=== PATIENT | female | born 1990 | race Caucasian/White ===

== ENCOUNTER → 2022-04-14 | Outpatient (CLI) | payer SELFPAY ==
--- NOTE | 2022-04-14 10:37 | US_ITS ---
STUDY: SUPERFICIAL ULTRASOUND - RIGHT INGUINAL REGION. REASON FOR EXAM: Female, 31 years old. R INGUINAL LUMP TECHNIQUE: A superficial ultrasound was performed with real-time and static martin-scale imaging. COMPARISON: None. FINDINGS: 2 adjacent hypoechoic nodules are seen corresponding to the palpable abnormality. The larger measures 2 cm x 1.3 cm x 0.6 cm. These may represent lymph nodes. Biopsy may be indicated. US/Ext Non Vasc Limited/Soft Tiss IMPRESSION: Findings suggest left to lymph nodes corresponding to the palpable lump in the right inguinal region. The larger measures 2 cm x 1.3 cm x 0.6 cm. Biopsy recommended. Electronically Signed: Lance Medina MD at 12:46 EDT ,
== END | disposition home or self-care (01) ==
LOC: US 10:35
PROVIDERS: PCP Nurse Practitioner Family; Referring Provider Student in an Organized Health Care Education/Training Program; Visit Provider Student in an Organized Health Care Education/Training Program
DX: R22.2 Localized swelling, mass and lump, trunk (principal)
CPT/HCPCS: 76882

== ENCOUNTER → 2022-11-23 | Outpatient (CLI) | payer SELFPAY ==
--- NOTE | 2022-11-23 15:58 | US_ITS ---
INDICATION: PAINFUL MENSES, R/O ENDOMETRIOSIS EXAMINATION: Ultrasound US Pelvis Non-OB Complete TECHNIQUE: Transabdominal and transvaginal pelvic ultrasound was performed. Grayscale, spectral waveform, and color flow Doppler evaluation of the adnexa. COMPARISON: None. FINDINGS: UTERUS: 1. Anteverted retroflexed The uterus measures 11.3 x 5.9 x 5.3 cm. There is no uterine mass. 2. There is an abnormal appearance of the endometrium which is mildly thickened however there is a hypoechoic structure which appears to be within the endometrial cavity, measuring approximately 2.1 x 1.4 x 3.5 cm and shows no abnormal blood flow. No free fluid in the endometrial cavity. 3. Bilaminar distance of the endometrium estimated approximately 11 mm. No abnormal fluid collections. Report RIGHT OVARY: 6.0 x 5.3 x 4.4 cm. Non-enlarged, normal echogenicity. There is normal arterial inflow and venous outflow present in the right ovary. There is a complex cyst measuring 4.4 x 3.4 x 3.5 cm. No abnormal blood flow. LEFT OVARY: 2.6 x 6.6 x 4.9 cm. Non-enlarged, normal echogenicity. There is normal arterial inflow and venous outflow present in the left ovary. There is a complex LEFT ovarian cyst measuring 6.6 x 6.2 x 5.6 cm. FREE FLUID: There is small amount of free fluid in the cul-de-sac. US/Pelvic (Non ) IMPRESSION: 1. Ovoid hypoechoic structure within the endometrial cavity. No abnormal normal blood flow noted, findings are of uncertain etiology, and a submucosal fibroid is a consideration. 2. Bilateral ovarian complex cyst largest on the RIGHT measures 4.4 x 3.4 x 3.5 cm. Similar hypoechoic structure in the LEFT ovary. Endometrioma is a consideration. No abnormal blood flow. 3. Trace free fluid. Electronically Signed: Jose David Alvarez MD at 18:18 EST ,
== END | disposition home or self-care (01) ==
PROVIDERS: PCP Nurse Practitioner Family
DX: R10.2 Pelvic and perineal pain (principal); N83.201 Unspecified ovarian cyst, right side; N80.9 Endometriosis, unspecified; N94.6 Dysmenorrhea, unspecified
CPT/HCPCS: 76856

== ENCOUNTER → 2023-01-25 | Outpatient (CLI) | payer SELFPAY | END | disposition home or self-care (01) | PROVIDERS: PCP Nurse Practitioner Family | DX: E80.7 Disorder of bilirubin metabolism, unspecified (principal) | CPT/HCPCS: 36415; 82247 ==

== ENCOUNTER → 2023-03-10 | Outpatient (CLI) | payer SELFPAY | END | disposition home or self-care (01) | PROVIDERS: PCP Nurse Practitioner Family | DX: R97.1 Elevated cancer antigen 125 [CA 125] (principal) | CPT/HCPCS: 36415; 86304 ==

== ENCOUNTER → 2023-06-08 | Outpatient (CLI) | payer SELFPAY ==
--- NOTE | 2023-06-08 17:07 | US_ITS ---
STUDY: ULTRASOUND OF THE FEMALE PELVIS - COMPLETE REASON FOR EXAM: Female, 32 years old. ENDOMETRIOSIS TECHNIQUE: Transabdominal COMPARISON: 11.23.22. FINDINGS: The uterus is retroflexed and is in a midline position. The uterus measures 9.8 x 6.3 cm. Normal uterine cervix. The endometrium measures 13 mm in thickness, and is fluid distended. There is 27mm demonstrated endometrial mass. There is no demonstrated myometrial mass. I.U.D. - The patient does not have an I.U.D. The right ovary is visualized. The right ovary measures 5.9 cm. There is right ovarian mass measuring 22mm. There is a simple right ovary cyst measuring 17mm . There is normal arterial and normal venous vascularity. The left ovary is visualized. The left ovary measures 6.3 cm. There is left ovarian septated cyst measuring 41mm. 28 x 21 mm hypoechoic lesion in the left ovary. Hypoechoic ovoid lesion in the left ovary measuring 32 x 13 mm.. There is no visualized left adnexal mass or complex lesion. There is normal arterial and normal venous vascularity. There is no fluid in the cul-de-sac. Unremarkable urinary bladder. US/Pelvic (Non ) IMPRESSION: Endometrial mass is again identified. this could be a subendometrial fibroid . Direct visualization is recommended. Complex right ovarian lesion may be a hemorrhagic cyst or dermoid. Endometriomas are also in the differential. Complex left ovary lesions may be endometriomas. Electronically Signed: Bryce Lucas MD at 17:46 EDT ,
== END | disposition home or self-care (01) ==
LOC: US 17:06
PROVIDERS: PCP Nurse Practitioner Family
DX: N80.9 Endometriosis, unspecified (principal); R10.2 Pelvic and perineal pain
CPT/HCPCS: 76856

== ENCOUNTER → 2023-06-15 | Outpatient (CLI) | payer SELFPAY | END | disposition home or self-care (01) | DX: R97.1 Elevated cancer antigen 125 [CA 125] (principal); N80.9 Endometriosis, unspecified | CPT/HCPCS: 36415; 86304 ==

== ENCOUNTER → 2023-09-06 | Outpatient (CLI) | payer SELFPAY ==
--- NOTE | 2023-09-06 15:32 | US_ITS ---
INDICATION: R/O ADENOMYOSIS,ENDOMETRIOMAS EXAMINATION: Ultrasound US Pelvis Non-OB Complete TECHNIQUE: Transabdominal sonographic images of the pelvis. Swan scale and color Doppler evaluation of the adnexa. COMPARISON: 06/08/2023 ultrasound. FINDINGS: UTERUS: Retroflexed. 9.7 x 5.7 x 6.3 cm. 2.1 cm mass within the fundal aspect of the endometrium. 1.1 cm hypoechoic lesion within the myometrium to the left of the endometrium. Endometrium is not well visualized. RIGHT OVARY: Stable 2.3 cm hyperechoic nodular lesion within the right ovary. LEFT OVARY: 5.6 cm complex left ovarian cyst slightly increased in size as compared to the prior exam. FREE FLUID: No significant free fluid. US/Pelvic (Non ) IMPRESSION: 1. 2.1 cm mass within the fundal aspect of the endometrium, stable as compared to 06/08/2023. Recommend follow-up with direct visualization versus MRI. 2. 2.3 cm hyperechoic nodular lesion in the right ovary, stable as compared to 06/08/2023. Recommend follow-up with MRI versus ultrasound in 6-12 weeks. 3. 5.6 cm complex left ovarian cyst, slightly increased in size as compared to 06/08/2023. Recommend short interval follow-up ultrasound. The endometrium was not well visualized on these transabdominal ultrasound images. Recommend follow-up with MRI to evaluate for adenomyosis or endometriomas. Electronically Signed: Philippe Rowley DO at 3:28 EDT ,
== END | disposition home or self-care (01) ==
LOC: US 15:30
DX: N80.9 Endometriosis, unspecified (principal); R10.2 Pelvic and perineal pain
CPT/HCPCS: 76856

== ENCOUNTER → 2023-09-26 | Outpatient (CLI) | payer SELFPAY ==
[2023-09-27 09:09] LABS: Cancer Antigen 125 83.2 U/mL (0.0-38.1)
== END | disposition home or self-care (01) ==
LOC: LAB 08:05
DX: N80.9 Endometriosis, unspecified (principal); R10.2 Pelvic and perineal pain; R97.1 Elevated cancer antigen 125 [CA 125]
CPT/HCPCS: 36415; 86304

== ENCOUNTER → 2023-12-01 | Outpatient (CLI) | payer SELFPAY ==
--- NOTE | 2023-12-01 10:02 | US_ITS ---
STUDY: ULTRASOUND TRANSVAGINAL CLINICAL: Female, 33 years old. ENDOMETRIOSIS TECHNIQUE: Transvaginal COMPARISON: September 06, 2023 FINDINGS: Normal uterine size measuring 10.3 x 5.8 x 5.8 cm in maximal craniocaudal dimension. There are no myometrial masses. Thickened endometrial lining measuring 1.8 cm. There is a hypoechoic/heterogeneous endometrial nodule measuring 2.5 x 2.3 x 1.8 cm. Etiology is indeterminate however it has increased in size since prior exam. Normal uterine cervix. Normal right ovary, measuring 5.9 x 4.4 x 3.9 cm. There is a hyperechoic nodule measuring 2.9 x 2.4 x 2.3 cm in association with heterogeneous thick-walled complex cyst measuring 2.5 x 1.5 x 2.1 cm possibly representing dermoid cyst. Enlarged left ovary, measuring 8 x 6.8 x 6 cm. There is a complex cyst with minor septation and possible intramural nodule measuring 1.1 x 1.5 cm of indeterminate etiology. This may represent endometrioma however cannot definitively exclude a cystic neoplasm. Recommend clinical correlation and follow-up studies There is mild free fluid in the pelvis. US/Transvaginal Non- IMPRESSION: Endometrial mass of uncertain etiology with possible right ovarian dermoid and complex cyst in the left ovary of indeterminate etiology. Recommend clinical correlation and pelvic MRI for more definitive evaluation Electronically Signed: Philippe Frank MD at 17:46 EST ,
== END | disposition home or self-care (01) ==
DX: N80.9 Endometriosis, unspecified (principal); R10.2 Pelvic and perineal pain
CPT/HCPCS: 76830

== ENCOUNTER → 2023-12-11 | Outpatient (CLI) | payer SELFPAY ==
[2023-12-12 04:07] LABS: Cancer Antigen 125 89.2 U/mL (0.0-38.1)
== END | disposition home or self-care (01) ==
DX: R97.1 Elevated cancer antigen 125 [CA 125] (principal)
CPT/HCPCS: 36415; 86304

== ENCOUNTER → 2024-01-23 | Outpatient (CLI) | payer SELFPAY | END | disposition home or self-care (01) | DX: N92.6 Irregular menstruation, unspecified (principal) | CPT/HCPCS: 36415; 82670 ==

== ENCOUNTER → 2024-02-10 | Outpatient (CLI) | payer SELFPAY ==
[2024-02-10 09:09] LABS: T4 Free Direct 1.01 ng/dL (0.76-1.46); Thyroid Stim Hormone (TSH) 2.66 uIU/mL (0.358-3.74)
[2024-02-12 09:23] LABS: Progesterone Level 12.74 ng/mL (See Comment)
== END | disposition home or self-care (01) ==
DX: R53.83 Other fatigue (principal); N94.3 Premenstrual tension syndrome; N92.6 Irregular menstruation, unspecified
CPT/HCPCS: 36415; 84144; 84439; 84443

== ENCOUNTER → 2024-05-01 | Outpatient (CLI) | payer SELFPAY | END | disposition home or self-care (01) | DX: R97.1 Elevated cancer antigen 125 [CA 125] (principal) | CPT/HCPCS: 36415; 86304 ==

== ENCOUNTER → 2024-06-11 | Outpatient (CLI) | payer SELFPAY ==
--- NOTE | 2024-06-11 14:28 | US_ITS ---
INDICATION: PELVIC AND PERINEAL PAIN EXAMINATION: Ultrasound US Pelvis Non-OB Complete TECHNIQUE: Transabdominal pelvic ultrasound was performed. Grayscale, spectral waveform, and color flow Doppler evaluation of the adnexa. COMPARISON: December 01, 2023., November 23, 2022 FINDINGS: UTERUS: Retroverted. The uterus measures 10.0 x 6.4 x 6.0 cm. Lower uterine segment anterior myometrial hypoechoic 1.5 cm fibroid. Endometrial stripe measures 8 mm, anterior posterior by a uterine fundal endometrial hypoechoic 2.7 x 1.4 cm mass with some internal vascular flow, grossly stable from 2.5 x 1.8 cm on December 01, 2023 and 2.1 x 1.4 cm November 23, 2022, most consistent with submucosal fibroid or polyp . RIGHT OVARY: 6.7 x 5.0 x 3.0 cm. Multiple normal small follicles individually up to 3.3 cm in size. In addition there is a hyperechoic 2.3 cm nonvascular focus that is unchanged from November 2022 There is normal arterial inflow and venous outflow present in the right ovary. LEFT OVARY: 6.3 x 3.6 x 4.4 cm.. Anechoic 4.0 cm dominant follicle with other small follicles. There is normal arterial inflow and venous outflow present in the left ovary. FREE FLUID: None. Other: Bladder anechoic with prevoid volume 471 mL. No post void imaging obtained. US/Pelvic (Non ) IMPRESSION: Small anterior body myometrial fibroid with concern for additional chronic unchanged fundal submucosal fibroid or polyp Large bilateral ovarian physiologic cysts. Stable right ovarian 2.3 cm echogenic lesion, possibly hemangioma, without suspicious change from November 23, 2022.. Preserved ovarian Doppler vascular flow. Well filled bladder. Electronically Signed: Abdiel Leonard MD at 3:54 EDT ,
== END | disposition home or self-care (01) ==
DX: R10.2 Pelvic and perineal pain (principal)
CPT/HCPCS: 76856

== ENCOUNTER → 2024-09-04 | Outpatient (CLI) | payer SELFPAY | END | disposition home or self-care (01) | PROVIDERS: Referring Provider Obstetrics & Gynecology Reproductive Endocrinology; Visit Provider Obstetrics & Gynecology Reproductive Endocrinology | DX: R97.1 Elevated cancer antigen 125 [CA 125] (principal); N80.9 Endometriosis, unspecified | CPT/HCPCS: 36415; 86304 ==

== ENCOUNTER → 2024-10-10 | Outpatient (CLI) | payer SELFPAY ==
--- NOTE | 2024-10-10 12:54 | US_ITS ---
PROCEDURE: ULTRASOUND OF THE FEMALE PELVIS - COMPLETE REASON FOR EXAM: Female, 33 years old. PELVIC AND PERINEAL PAIN TECHNIQUE: Transabdominal and Transvaginal TECHNICAL QUALITY: Adequate. COMPARISON: Pelvic ultrasound dated December 01, 2023 FINDINGS: The uterus is anteverted and is in a midline position. The uterus measures 9.9 x 5.4 x 5.4 cm. Redemonstration of uterine fibroids as follows: Small anterior fundal uterine body junction submucosal fibroid measuring 1.75 x 1.19 cm The endometrium measures 13.9 mm in thickness, and is bright. There is no demonstrated endometrial mass. Normal uterine cervix. The right ovary is visualized. The right ovary measures 6.2 x 2.6 x 2.7 cm. Cortical/exophytic follicular cyst with septation and benign features and no complexity measures 4.0 x 3.8 cm. This previously measured 2.3 cm on the prior study. No mass is present. There is no visualized right adnexal mass or complex lesion. The left ovary is visualized. The left ovary measures 6.2 x 5.8 x 4.6 cm. Left ovarian dominant follicular cyst measures 5.4 x 4.7 cm which is benign and has no vascularity or complexity. On the prior study this cyst measures 4 cm maximally. There is no visualized left adnexal mass or complex lesion. Normal color vascular flow and Doppler signal is demonstrated in both ovaries. There is no fluid in the cul-de-sac. US/Pelvic (Non ) IMPRESSION: 1. Interval enlargement of bilateral ovarian follicular cysts which are benign. Follow-up evaluation can be performed as clinically indicated given the size and risk of rupture. Electronically Signed: Luis Mullen MD at 10:26 EST ,
== END | disposition home or self-care (01) ==
LOC: US 12:51
PROVIDERS: Referring Provider Obstetrics & Gynecology Reproductive Endocrinology; Visit Provider Obstetrics & Gynecology Reproductive Endocrinology
DX: R10.2 Pelvic and perineal pain (principal); F80.9 Developmental disorder of speech and language, unspecified
CPT/HCPCS: 76856

== ENCOUNTER → 2024-12-20 | Outpatient (CLI) | payer SELFPAY | END | disposition home or self-care (01) | LOC: LAB 15:13 | PROVIDERS: Referring Provider Obstetrics & Gynecology Reproductive Endocrinology; Visit Provider Obstetrics & Gynecology Reproductive Endocrinology | DX: R97.1 Elevated cancer antigen 125 [CA 125] (principal) | CPT/HCPCS: 36415; 86304 ==

== ENCOUNTER → 2025-01-02 | Outpatient (CLI) | payer SELFPAY ==
--- NOTE | 2025-01-02 12:23 | US_ITS ---
PROCEDURE: PELVIC (NON ) REASON FOR EXAM: Pelvic pain. LMP: December 19, 2024 TECHNIQUE: Transabdominal pelvic ultrasound COMPARISON: None. FINDINGS: Measurements: Uterus: 10.3 cm x 5.5 cm x 5.6 cm with a volume of mL Endometrial Thickness: 15 mm. It is heterogeneous. Findings suggestive of a complex mass in the endometrium measuring 3.3 cm x 2.2 cm x 1 cm. Right Ovary: 9.4 cm x 6.6 cm x 3.4 cm. There are 3 echogenic masses within the right ovary. This may represent dermoid changes. Correlation with CT scan recommended. Left Ovary: 7.2 cm x 6.8 cm x 4.8 cm.. There is a 4 cm x 3.8 cm x 3.2 cm left ovarian cyst. Uterus: There is a 1.5 cm with a 1.4 cm x 1.2 cm fibroid in the anterior fundus portion of the uterus. No large pelvic mass identified. US/Pelvic (Non ) IMPRESSION: Fibroid uterus. Findings suggestive of a 3.3 cm x 2.2 cm x 1 cm complex mass in the endometrium . Enlarged ovaries. Findings suggestive of dermoid cysts in the right ovary. CT correlation recomm ended. Reading Location: [facility]
== END | disposition home or self-care (01) ==
PROVIDERS: Referring Provider Obstetrics & Gynecology Reproductive Endocrinology; Visit Provider Obstetrics & Gynecology Reproductive Endocrinology
DX: R10.2 Pelvic and perineal pain (principal)
CPT/HCPCS: 76856

== ENCOUNTER → 2025-02-25 | Outpatient (CLI) | payer SELFPAY ==
--- NOTE | 2025-02-25 13:32 | MRI_ITS ---
EXAM: PELVIS W/WO CONTRAST 02/25/2025 CLINICAL HISTORY: PELVIC AND PERINEAL PAIN. History of endometriosis and surgery in 2022. TECHNIQUE: MRI of the pelvis was performed. Multiplanar and multisequence images were obtained with and without intravenous gadolinium contrast. CONTRAST: Clariscan 9 mL intravenous. COMPARISON: None. FINDINGS: Uterus is slightly retroflexed with a length of approximately 8.6 cm. The endometrium is thickened up to 15 mm. A few cystic foci are noted at the fundal endometrium measuring up to 7 mm. There is focal junctional zone thickening at the anterior uterine fundus, 2 cm thickness. This suggest focal adenomyosis. No leiomyoma identified. Cervix is normal. Vagina is unremarkable. Urethra is unremarkable. 2.6 cm T2 hyperintense lesion in the right ovary with signal loss on fat saturation sequences suggesting macroscopic fat implying dermoid cyst. Several small peripheral follicles of the right ovary noted measuring up to 1.7 cm. 4 cm T1 hyperintense lesion in the left ovary without significant fat suppression and partial signal loss on T2 imaging (T2 shading) suggesting endometrioma. A few peripheral cystic foci of the left ovary measuring up to 2.6 cm likely combination of simple and hemorrhagic cysts. 4.8 cm dilated tubular structure in the left adnexa subjacent to the ovary most consistent with hydrosalpinx. Ill-defined T2 hypointense structure positioned between the rectosigmoid junction and uterus just above the peritoneal reflection measures approximately 5 x 2.1 x 1.3 cm suggesting adhesion. Multilocular cystic nonenhancing material draped over the uterine fundus tracking posterior to the uterine fundus may represent peritoneal inclusion cyst. The total AP dimension of this is a proximally 9 cm. Maximal AP dimension is a proximally 3.6 cm. Trace free fluid anterior and superior to the urinary bladder, nonspecific. No bladder mass is demonstrated. The distal ureters are nondilated. No primary rectal mass is identified. Marrow signal is normal. MRI/Pelvis W/WO Contrast IMPRESSION: 1. Left ovarian endometrioma measuring 4 cm. Mild left hydrosalpinx. 2. Just above the peritoneal reflection between the uterine body and rectosigm oid serosa is T2 hypointense adhesion measuring 5 x 2.1 x 1.3 cm. 3. Right ovarian dermoid cyst measuring 2.6 cm. 4. Lobular cystic change draped over the uterine fundus measuring 9 cm in AP d imension and 3.6 cm in maximal AP dimension it. Favor peritoneal inclusion cyst. 5. Endometrial thickening up to 15 mm. A few cystic foci of the endometrium u p to 7 mm. 6. Variable junctional zone thickening up to 2 cm at the upper anterior uterin e body suggesting adenomyosis. Reading Location[facility]
== END | disposition home or self-care (01) ==
PROVIDERS: Referring Provider Obstetrics & Gynecology Reproductive Endocrinology; Visit Provider Obstetrics & Gynecology Reproductive Endocrinology
DX: R10.2 Pelvic and perineal pain (principal)
CPT/HCPCS: 72197; A9575

== ENCOUNTER → 2025-05-21 | Outpatient (CLI) | payer SELFPAY ==
--- NOTE | 2025-05-21 14:32 | US_ITS ---
EXAM: US Pelvis Transabdominal and Transvaginal, Complete CLINICAL INDICATION: PELVIC AND PERINEAL TECHNIQUE: Real-time complete transabdominal and transvaginal pelvic ultrasound with image documentation. Transvaginal imaging was used for better evaluation of the endometrium and adnexa. COMPARISON: MRI pelvis 02/25/2025 FINDINGS: UTERUS/CERVIX: 2.5 x 1.6 x 1.4 cm hypoechoic lesion of the left aspect of the uterus may represent peritoneal inclusion cysts, better demonstrated on recent MRI. 1.8 cm heterogeneous lesion at the endometrium. No myometrial mass. The uterus measures 10.3 x 5.4 x 6.0 cm. The endometrial stripe measures 0.85 cm in thickness. RIGHT OVARY: 3.7 x 3.7 x 2.8 cm complex ovarian cyst. Normal blood flow. The right ovary measures 6.0 x 3.8 x 2.6 cm. LEFT OVARY: The left ovary measures 6.8 x 4.9 x 4.2 cm. FREE FLUID: Small amount of free pelvic fluid. BLADDER: Unremarkable as visualized. Wall is normal thickness for degree of distention. OTHER FINDINGS: Mild right hydrosalpinx. Mild left hydrosalpinx. 2.8 x 3.5 x 2.8 cm dermoid. US/Pelvic (Non ) IMPRESSION: Right ovarian dermoid. Bilateral mild hydrosalpinx. Endometrial adenomyosis. Probable peritoneal inclusion cysts. These changes are better demonstrated on recent pelvic MRI. Reading Location[facility]
--- NOTE | 2025-05-21 14:32 | US_ITS ---
EXAM: US Pelvis Transabdominal and Transvaginal, Complete CLINICAL INDICATION: PELVIC AND PERINEAL TECHNIQUE: Real-time complete transabdominal and transvaginal pelvic ultrasound with image documentation. Transvaginal imaging was used for better evaluation of the endometrium and adnexa. COMPARISON: MRI pelvis 02/25/2025 FINDINGS: UTERUS/CERVIX: 2.5 x 1.6 x 1.4 cm hypoechoic lesion of the left aspect of the uterus may represent peritoneal inclusion cysts, better demonstrated on recent MRI. 1.8 cm heterogeneous lesion at the endometrium. No myometrial mass. The uterus measures 10.3 x 5.4 x 6.0 cm. The endometrial stripe measures 0.85 cm in thickness. RIGHT OVARY: 3.7 x 3.7 x 2.8 cm complex ovarian cyst. Normal blood flow. The right ovary measures 6.0 x 3.8 x 2.6 cm. LEFT OVARY: The left ovary measures 6.8 x 4.9 x 4.2 cm. FREE FLUID: Small amount of free pelvic fluid. BLADDER: Unremarkable as visualized. Wall is normal thickness for degree of distention. OTHER FINDINGS: Mild right hydrosalpinx. Mild left hydrosalpinx. 2.8 x 3.5 x 2.8 cm dermoid. US/Pelvic (Non ) IMPRESSION: Right ovarian dermoid. Bilateral mild hydrosalpinx. Endometrial adenomyosis. Probable peritoneal inclusion cysts. These changes are better demonstrated on recent pelvic MRI. Reading Location[facility]
== END | disposition home or self-care (01) ==
LOC: US 14:26
PROVIDERS: Referring Provider Obstetrics & Gynecology Reproductive Endocrinology; Visit Provider Obstetrics & Gynecology Reproductive Endocrinology
DX: R10.2 Pelvic and perineal pain (principal)
CPT/HCPCS: 76856

== ENCOUNTER → 2025-05-29 | Outpatient (CLI) | payer SELFPAY | END | disposition home or self-care (01) | LOC: LAB 14:24 | PROVIDERS: Referring Provider Obstetrics & Gynecology Reproductive Endocrinology; Visit Provider Obstetrics & Gynecology Reproductive Endocrinology | DX: R97.1 Elevated cancer antigen 125 [CA 125] (principal) | CPT/HCPCS: 36415; 86304 ==

== ENCOUNTER → 2025-08-18 | Outpatient (CLI) | payer SELFPAY | END | disposition home or self-care (01) | LOC: LAB 08:05 | PROVIDERS: Referring Provider Obstetrics & Gynecology Reproductive Endocrinology; Visit Provider Obstetrics & Gynecology Reproductive Endocrinology | DX: R97.1 Elevated cancer antigen 125 [CA 125] (principal) | CPT/HCPCS: 36415; 86304 ==